=== PATIENT | female | born 1950 | race Caucasian/White ===

== ENCOUNTER 2017-11-16 11:40 | Outpatient (CLI) | payer MEDICARE, OTHER ==
--- NOTE | 2017-11-19 15:56 | Mammography Report ---
DIGITAL SCREENING MAMMOGRAM: 11/16/2017 CLINICAL INDICATION: A 67-year-old nulliparous patient with family history of breast cancer, for screening. COMPARISON: 11/2016, 10/2015. TECHNIQUE: Routine CC and MLO projections were obtained of the breasts. FINDINGS: The breasts again demonstrate heterogeneously dense fibroglandular parenchyma bilaterally. No suspicious masses, clustered microcalcifications, or regions of architectural distortion are identified. IMPRESSION: NEGATIVE EXAMINATION. RECOMMENDATION: ROUTINE ANNUAL SCREENING UNLESS OTHERWISE CLINICALLY INDICATED. BIRADS CATEGORY 1-NEGATIVE. STANDARD QUALIFYING STATEMENTS: 1. This examination was reviewed with the aid of Computer-Aided Detection (CAD). 2. A negative or benign imaging report should not delay biopsy if clinically suspicious findings are present. Consider surgical consultation if warranted. More than 5% of cancers are not identified by imaging. 3. Dense breasts may obscure an underlying neoplasm. TD: 11/19/2017 15:55
== END 2017-11-16 11:41 | disposition home or self-care (01) ==
LOC: DI.N 11:40
PROVIDERS: ATTEND Family Medicine
DX: Z12.31 Encounter for screening mammogram for malignant neoplasm of breast (principal); Z80.3 Family history of malignant neoplasm of breast
CPT/HCPCS: 77067

== ENCOUNTER 2023-09-12 11:24 | Outpatient (CLI) | payer MEDICARE, OTHER ==
--- NOTE | 2023-09-12 13:54 | XRAY Report ---
PROCEDURE: Hip w/Pelvis 2-3V RT INDICATIONS: RIGHT HIP PAIN TECHNIQUE: 3 views of the hip were acquired. COMPARISON: None. FINDINGS: Bones: No fractures or dislocations. No suspicious bony lesions. Mild to moderate bilateral degen erative hip joint space narrowing. No erosions. Degenerative changes are present within the lower lum bar spine. Soft tissues: No suspicious soft tissue calcifications or masses. IMPRESSION: Arthritic changes within the hip joints bilaterally as above. Reviewed by: Erika Iqbal MD on 09/12/2023 1:52 PM PST Approved by: Erika Iqbal MD on 09/12/2023 1:52 PM PST Station ID: [id number]
== END 2023-09-12 11:25 | disposition home or self-care (01) ==
LOC: DI 11:24
PROVIDERS: ATTEND Internal Medicine
DX: M16.0 Bilateral primary osteoarthritis of hip (principal)

== ENCOUNTER 2023-10-01 06:35 | Day surgery (SDC) | payer MEDICARE, OTHER ==
[2023-10-01] MEDS ORDERED: LACTATED RINGERS 1,000 ML IV ONE ×2 (06:48→09:01)
--- NOTE | 2023-10-01 08:24 | ANESTHESIA ---
Pre-Anesthesia VS, & Labs - Diagnosis screening - Procedure colonoscopy Vital Signs: Temp Pulse Resp BP Pulse Ox O2 Flow Rate 36.2 C L 65 14 153/85 H 100 0 10/01/23 07:16 10/01/23 07:16 10/01/23 07:16 10/01/23 07:16 10/01/23 07:16 10/01/23 07:16 Height: 5 ft 4 in Weight (kg): 59.5 kg Body Mass Index: 22.5 BMI Classification: Normal - NPO Other (prep as directed) - Is Patient ?: No Home Medications and Allergies Home Medications: Ambulatory Orders No Known Home Medications 09/28/23 No Known Home Medications 09/28/23 Allergies/Adverse Reactions: Allergies Allergy/AdvReac Type Severity Reaction Status Date / Time No Known Drug Allergies Allergy Verified 09/28/23 13:38 Anes History & Medical History - Anesthetic History Anesthesia Complications: reports: No previous complications - Medical History Cardiovascular: reports: None Pulmonary: reports: None Gastrointestinal: reports: GI bleed, Colon polyps Urinary: reports: None Musculoskeletal: reports: Osteoarthritis Skin: reports: None - Surgical History Eyes Ears Nose Throat (EENT): reports: Tonsil/Adenoidectomy Gynecologic: reports: Oophrectomy Dermatologic: reports: Other Exam General: Alert Dental: WNL Mouth Opening: Greater than 4 Fingerbreadths Neck Mobility: Normal Mallampati classification: II Thyromental Distance: greater than 6 cm Respiratory: Lungs clear Cardiovascular: Regular rate, Normal S1, Normal S2 Plan Anesthesia Type: Total IV Consent for Procedure(s) Verified and Reviewed: Yes Code Status: Attempt Resuscitation ASA classification: 2-Mild systemic disease Is this case an emergency?: No
[2023-10-01] MEDS ORDERED: PROPOFOL 500 MG/50 ML 500 MG/50 ML VIAL ONE (08:35)
[2023-10-01] MEDS ORDERED: LIDOCAINE-PF 2% 10 ML AMP SUBQ ONE (08:35)
[2023-10-01] MEDS ORDERED: ONDANSETRON 4 MG/2 ML VIAL ONE (08:47)
[2023-10-01 09:34] VITALS: BP 158/90; O2SAT 100
--- NOTE | 2023-10-01 10:09 | ANESTHESIA POST OP EVALUATION ---
Anesthesia Post Eval - Post Anesthesia Eval Vitals: Last Vital Signs Temp 36 C L 10/01/23 09:24 Pulse 58 L 10/01/23 09:24 Resp 16 10/01/23 09:24 BP 158/90 H 10/01/23 09:24 Pulse Ox 100 10/01/23 09:24 O2 Flow Rate 0 10/01/23 07:16
== END 2023-10-01 06:36 | disposition home or self-care (01) ==
LOC: SDS 06:35
PROVIDERS: ATTEND Surgery
PROC: 0DBM8ZX Excision of Descending Colon, Via Natural or Artificial Opening Endoscopic, Diagnostic (ICD-10-PCS; principal; 2023-10-01 08:15)
DX: Z12.11 Encounter for screening for malignant neoplasm of colon (principal); D12.4 Benign neoplasm of descending colon; K57.30 Diverticulosis of large intestine without perforation or abscess without bleeding; K64.1 Second degree hemorrhoids
CPT/HCPCS: 45380; J7120

== ENCOUNTER 2024-01-14 14:41 | Outpatient (CLI) | payer MEDICARE, OTHER ==
--- NOTE | 2024-01-14 17:52 | MRI Report ---
PROCEDURE: Lumbar Spine WO INDICATIONS: LOW BACK PAIN TECHNIQUE: Noncontrast sagittal T1 spin echo and T2 fast echo, sagittal STIR, axial T1 and T2 fast spin echo thr ough the lumbar spine. In cases with scoliosis, additional coronal T2 fast spin echo may be performe d. COMPARISON: None. FINDINGS: Image quality: Motion artifact is noted. Alignment and Curvature: There is normal bony alignment. Bone Marrow: Marrow is of normal overall signal. No acute vertebral body compression fractures. Spinal Cord: Conus medullaris terminates at the L1 level. Visualized cord demonstrates normal signa l and size. Paraspinous Soft Tissues: No paravertebral masses. T12-L1: Normal in appearance. L1-L2: Mild disc bulge moderate disc bulge is seen, which is eccentric to the right. There is mode rate right-sided and mild left-sided facet hypertrophy. There is moderate right-sided and no left-jazmin ed neuroforaminal narrowing. Minimal central canal narrowing is seen. L2-L3: The disc height is well-preserved. There is loss of disc signal seen. Mild disc bulge is s een. Mild to moderate facet hypertrophy is seen. There is moderate left-sided and yyrh-on-izpmncoa ri ght-sided neuroforaminal narrowing. Mild central canal narrowing is seen. L3-L4: The disc height is well-preserved. There is loss of disc signal seen. Moderate disc bulge is seen, which is eccentric to the right. Moderate facet hypertrophy is seen. There is mild to moderat e left-sided and moderate right-sided neuroforaminal narrowing. Mild central canal narrowing is seen . L4-L5: The disc height is well-preserved. There is loss of disc signal seen. Minimal to mild bulg e prominent facet hypertrophy is seen. Fluid is seen within the facet joints themselves. There is at least moderate right-sided and moderate left-sided neuroforaminal narrowing. Moderate central canal narrowing is seen. L5-S1: The disc height is well-preserved. There is loss of disc signal seen. Mild disc bulge is se en. Moderate facet hypertrophy is seen. There is mild left-sided and moderate right-sided neuroforam inal narrowing. Mild to moderate central canal narrowing is seen. IMPRESSION: Multiple levels of lumbar spine degenerative change can be seen. Reviewed by: Huan Troncoso MD on 01/14/2024 4:50 PM AKDT Approved by: Huan Troncoso MD on 01/14/2024 4:50 PM [id number] Station ID: [id number]
== END 2024-01-14 14:42 | disposition home or self-care (01) ==
LOC: DI 14:41
PROVIDERS: ATTEND Student in an Organized Health Care Education/Training Program
DX: M51.36 Other intervertebral disc degeneration, lumbar region (principal); M48.061 Spinal stenosis, lumbar region without neurogenic claudication; M47.816 Spondylosis without myelopathy or radiculopathy, lumbar region; M51.37 Other intervertebral disc degeneration, lumbosacral region; M48.07 Spinal stenosis, lumbosacral region; M47.817 Spondylosis without myelopathy or radiculopathy, lumbosacral region